=== PATIENT | female | born 1965 | race Hispanic/Latino ===

== ENCOUNTER 2017-10-10 19:46 | Emergency (ER) | payer BC ==
[2017-10-10 20:12] LABS: BASOPHILS % (AUTO) 0.3 % (0.0-5.0); EOSINOPHILS % (AUTO) 1.6 % (0.0-8.0); HEMATOCRIT 35.9 % (36-48); LYMPHOCYTES % (AUTO) 51.3 % (21.0-51.0); MEAN CORPUSCULAR HEMOGLOBIN 30.5 pg (27.0-33.0); MEAN CORPUSCULAR HGB CONC 34.7 g/dL (32.0-36.0); MONOCYTES % (AUTO) 6.8 % (3.0-13.0); NUCLEATED RED BLOOD CELLS 0.1 % (0.0-0.19); PLATELET COUNT (AUTO) 361 K/uL (130-400); RED BLOOD CELL COUNT(AUTO) 4.08 MIL/uL (4.00-5.50); RED CELL DISTRIBUTION WIDTH 14.1 % (11.0-15.5); WHITE BLOOD COUNT (AUTO) 9.9 K/uL (4.8-10.8)
[2017-10-10 20:19] LABS: APPEARANCE,URINE Clear (CLEAR); BILIRUBIN,URINE Negative (NEGATIVE); COLOR,URINE Yellow (YELLOW); GLUCOSE, URINE (UA) Negative (NEGATIVE); KETONES,URINE Negative (NEGATIVE); LEUKOCYTE ESTERASE ,URINE Moderate (NEGATIVE); NITRATE,URINE Negative (NEGATIVE); OCCULT BLOOD,URINE Negative (NEGATIVE); PROTEIN,URINE Negative (NEGATIVE); UROBILINOGEN,URINE 0.2 mg/dL (0.2-1.0)
[2017-10-10 20:22] LABS: CARBON DIOXIDE 29 mmol/L (21-32); CHLORIDE 105 mmol/L (101-111); CREATININE 0.9 mg/dL (0.5-1.5); GLOMERULAR FILTR. RATE CALC 69 mL/min (>60); GLUCOSE,RANDOM 95 mg/dL (70-105); POTASSIUM 3.5 mmol/L (3.5-5.1); SODIUM SERUM 142 mmol/L (136-145); UREA NITROGEN, BLOOD 15 mg/dL (7-18)
[2017-10-10 20:23] LABS: INR 0.95 (0.85-1.15); PARTIAL THROMBOPLASTIN TIME 29.5 SEC (26.3-35.5)
[2017-10-10 20:29] LABS: BACTERIA,URINE Rare /HPF (None Seen); RBC,URINE None Seen /HPF (0-1); SQUAMOUS EPITHELIAL CELL,UR 0-2 /LPF (0-2)
[2017-10-10 20:35] LABS: ALANINE AMINOTRANSFERASE 21 U/L (12-78); AMYLASE 37 U/L (25-115); ASPARTATE AMINOTRANSFERASE 16 U/L (10-37); BILIRUBIN,TOTAL 0.3 mg/dL (0.2-1.0); CREATINE KINASE MB < 0.5 ng/mL (0.5-3.6)
[2017-10-10] MEDS ORDERED: SODIUM CHLORIDE 0.9% 1000ML 1,000 ML IV ONE (20:53)
[2017-10-10] MEDS ORDERED: CEFTRIAXONE SODIUM 1 GM ONE (20:53)
[2017-10-10] MEDS ORDERED: KETOROLAC TROMETHAMINE 30MG/ML ONE ×2 (22:29→22:33)
== END 2017-10-10 23:03 | disposition home or self-care (01) ==
LOC: EDH 19:46
DX: N10 Acute pyelonephritis (principal); I10 Essential (primary) hypertension; K21.9 Gastro-esophageal reflux disease without esophagitis; R51 Headache; Z72.0 Tobacco use
CPT/HCPCS: 36415; 71045; 80053; 81001; 82150; 82553; 84484; 85025; 85610; 85730; 87088; 87186; 93005; 96361; 96374; 96375; 99285; J0696; J1885; J7030